=== PATIENT | male | born 1970 | race Hispanic/Latino ===

== ENCOUNTER 2022-03-30 08:50 | Emergency (ER) | payer OTHER ==
[2022-03-30] MEDS ORDERED: HYDROmorphone 0.5 MG/0.5 ML Syringe IVPUSH ONE (09:02)
[2022-03-30] MEDS ORDERED: Metoclopramide 10 MG/2 ML SDV IVPUSH ONE (09:02)
[2022-03-30] MEDS ORDERED: Iopamidol 612 MG/ML 50 ML SDV IVPUSH ONE ×2 (09:13→10:01)
[2022-03-30] MEDS ORDERED: Iopamidol 612 MG/ML 100 ML Bottle IVPUSH ONE ×2 (09:13→10:01)
[2022-03-30] MEDS ORDERED: Sodium Chloride 0.9% 1,000 ML IV SCH (09:15)
[2022-03-30] MEDS: Sodium Chloride 0.9% 10 ML Syringe FLUSH PRN ×2 (09:41→10:01)
[2022-03-30] MEDS ORDERED: Lidocaine 1% 10 ML MDV INJECT ONE (11:40)
== END 2022-03-30 13:24 | disposition home or self-care (01) ==
LOC: JD.ED 08:50
DX: S06.0X9A Concussion with loss of consciousness of unspecified duration, initial encounter (principal); S39.012A Strain of muscle, fascia and tendon of lower back, initial encounter; S13.9XXA Sprain of joints and ligaments of unspecified parts of neck, initial encounter; S01.81XA Laceration without foreign body of other part of head, initial encounter; E66.9 Obesity, unspecified; Z68.30 Body mass index [BMI] 30.0-30.9, adult; V69.00XA Driver of heavy transport vehicle injured in collision with unspecified motor vehicles in nontraffic accident, initial encounter; Y92.410 Unspecified street and highway as the place of occurrence of the external cause
CPT/HCPCS: 36415; 70450; 71260; 72125; 72128; 72131; 74177; 80053; 82150; 85025; 85610; 85730; 93005; 96361; 96374; 96375; 99285; J1170; J2765; J3490; J7030; Q9967

== ENCOUNTER 2022-04-07 17:58 | Emergency (ER) | payer OTHER | END 2022-04-07 19:32 | LOC: JD.ED 17:58 | DX: S01.81XD Laceration without foreign body of other part of head, subsequent encounter (principal); V69.9XXD Occupant (driver) (passenger) of heavy transport vehicle injured in unspecified traffic accident, subsequent encounter | CPT/HCPCS: 99281 ==